=== PATIENT | female | born 1960 | race Hispanic/Latino ===

== ENCOUNTER 2022-12-02 23:06 | Emergency (ER) | payer BC ==
[~2022-12-02] VITALS: Ht 157.5 cm; Wt 72.6 kg
[~2022-12-02 23:06] MED LIST: ASPIR 8181 MG PO; DICLOFENAC 75 MG; MULTI-VITAMIN1 EACH PO
[2022-12-02] MEDS ORDERED: ONDANSETRON HCL INJ 2MG/ML 2ML 2 MG/ML VIAL IV STA (23:38)
[2022-12-02] MEDS ORDERED: SODIUM CHLORIDE 0.9% 1000ML 1,000 ML IV SCH (23:45)
[2022-12-02] MEDS ORDERED: MECLIZINE HCL 12.5 MG TAB PO ONE (23:45)
[2022-12-02] MEDS ORDERED: MECLIZINE HCL 12.5 MG TAB ONE (23:53)
[2022-12-02] MEDS ORDERED: SODIUM CHLORIDE 0.9% 1000ML 1,000 ML ONE (23:53)
[2022-12-02] MEDS ORDERED: ONDANSETRON HCL INJ 2MG/ML 2ML 2 MG/ML VIAL ONE (23:53)
[2022-12-03] MEDS ORDERED: MECLIZINE HCL12.5 MG PO (01:21)
[2022-12-03] MEDS ORDERED: ONDANSETRON ODT4 MG PO (01:22)
[2022-12-03 01:24] VITALS: BP 156/81
[2022-12-03] MEDS ORDERED: MECLIZINE HCL25 MG PO (01:35)
== END 2022-12-03 01:32 | disposition home or self-care (01) ==
LOC: FSED 23:38
DX: H81.10 Benign paroxysmal vertigo, unspecified ear (principal); R11.2 Nausea with vomiting, unspecified; I10 Essential (primary) hypertension; E78.5 Hyperlipidemia, unspecified
CPT/HCPCS: 70450; 80053; 81003; 85025; 96374; 99284; J2405; J7030; J8597